=== PATIENT | male | born 1960 | race Caucasian/White ===

== ENCOUNTER 2021-10-07 05:29 | Inpatient (IN) | payer OTHER ==
[2021-10-06 14:42] LABS: COVID AG,FIA SOURCE NASAL SWAB
[~2021-10-07] VITALS: Ht 165.1 cm; Wt 93.2 kg
[~2021-10-07 05:29] MED LIST: AMLO-258 PO; ATOR10TA84 PO
[2021-10-07] MEDS ORDERED: RINGERS SOLUTION,LACTATED 1,000 ML IV ONE ×3 (05:30→08:09)
[2021-10-07] MEDS ORDERED: BUPIVACAINE LIPOSOME/PF 1.3%-13.3MG/ML SUSPENSION 20 ML VIAL INJ ONE (06:45)
[2021-10-07] MEDS ORDERED: TRANEXAMIC ACID 1,000 MG/10 ML VIAL ONE (06:46)
[2021-10-07] MEDS ORDERED: VANCOMYCIN HCL 1 GM/VIAL ONE (06:46)
[2021-10-07] MEDS ORDERED: BUPIVACAINE HCL/PF 0.5% 30 ML VIAL ONE (06:46)
[2021-10-07] MEDS ORDERED: SODIUM CL IRRIG SOLN BAG 6,000 ML IRRIG ONE (06:47)
[2021-10-07] MEDS ORDERED: SODIUM CHLORIDE 0.9% 20 ML ONE (06:51)
[2021-10-07] MEDS: OXYGEN THERAPY IH SCH (07:34)
[2021-10-07] MEDS ORDERED: HYDROmorphone 2 MG/ML VIAL IVP PRN ×2 (08:30)
[2021-10-07] MEDS ORDERED: FentaNYL CITRATE PF 100 MCG/2 ML VIAL IVP PRN (08:30)
[2021-10-07] MEDS ORDERED: SUGAMMADEX SODIUM 200 MG/2 ML VIAL IVP ONE (08:52)
[2021-10-07] MEDS ORDERED: MAG HYDROX/AL HYDROX/SIMETH 30 ML SUSP UDCUP PO PRN (09:30)
[2021-10-07] MEDS ORDERED: ONDANSETRON HCL 4 MG/2 ML VIAL IVP PRN (09:30)
[2021-10-07 10:25] VITALS: BP 123/66
[2021-10-07] MEDS: SODIUM CHLORIDE 0.9% 1,000 ML IV SCH ×2 (11:50→23:14)
[2021-10-07] MEDS: CYCLOBENZAPRINE HCL 10 MG TABLET PO SCH ×3 (11:50→23:18)
[2021-10-07] MEDS: CeFAZolin 2 GM/DEXTROSE 50 ML IV SCH ×2 (13:51→20:54)
[2021-10-07 15:37] VITALS: BP 122/73
[2021-10-07] MEDS: FAMOTIDINE 20 MG TABLET PO SCH (20:54)
[2021-10-07] MEDS: OxyCODONE HCL/ACETAMINOPHEN 5-325 MG TABLET PO PRN (20:55)
[2021-10-07] MEDS: DOCUSATE SODIUM 100 MG CAPSULE PO SCH (21:00)
[2021-10-07] MEDS: CELECOXIB 100 MG CAPSULE PO SCH (23:14)
[2021-10-08 04:38] VITALS: BP 113/72
[2021-10-08] MEDS: CeFAZolin 2 GM/DEXTROSE 50 ML IV SCH ×3 (05:17→22:16)
[2021-10-08] MEDS: CYCLOBENZAPRINE HCL 10 MG TABLET PO SCH ×4 (05:18→23:10)
[2021-10-08 06:22] LABS: ANION GAP 5 mmol/L (8-16); CALCIUM, TOTAL 7.9 mg/dL (8.8-10.5); CARBON DIOXIDE 28 mmol/L (22-29); CHLORIDE 104 mmol/L (98-107); CREATININE 1.02 mg/dL (0.60-1.30); GLOMERULAR FILTR. RATE CALC > 60 mL/min (>60); GLUCOSE,RANDOM 175 mg/dL (70-110); SODIUM SERUM 137 mmol/L (136-145); UREA NITROGEN, BLOOD 12 mg/dL (7-18)
[2021-10-08 06:25] LABS: BASOPHILS % (AUTO) 0.1 % (0.0-2.0); EOSINOPHILS % (AUTO) 0.1 % (1.0-6.0); HEMATOCRIT 33.4 % (41-53); HEMOGLOBIN 11.5 g/dL (13.5-17.5); LYMPHOCYTES # (AUTO) 1.6 K/uL (1.0-4.8); LYMPHOCYTES % (AUTO) 11.1 % (22.0-44.0); MEAN CORPUSCULAR HEMOGLOBIN 31.5 pg (26.0-34.0); MEAN CORPUSCULAR HGB CONC 34.4 G/dL (31.0-37.0); MEAN CORPUSCULAR VOLUME 91 fL (80-100); MONOCYTES # (AUTO) 1.3 K/uL (0.1-1.0); MONOCYTES % (AUTO) 8.9 % (2.0-9.0); NEUTROPHILS # (AUTO) 11.4 K/uL (1.8-7.7); NEUTROPHILS % (AUTO) 79.8 % (40.0-70.0); PLATELET COUNT (AUTO) 236 K/uL (150-450); RED BLOOD CELL COUNT(AUTO) 3.66 MIL/uL (4.50-5.90); RED CELL DISTRIBUTION WIDTH 13.6 % (11.5-14.5)
[2021-10-08] MEDS ORDERED: PROPOFOL 1% 20 ML VIAL IVP ONE (06:36)
[2021-10-08] MEDS ORDERED: DEXAMETHASONE SOD PHOS 4 MG/ML VIAL IVP ONE (06:36)
[2021-10-08] MEDS ORDERED: SUGAMMADEX SODIUM 200 MG/2 ML VIAL IVP ONE (06:36)
[2021-10-08] MEDS ORDERED: ACETAMINOPHEN/ISO-OSM 1000 MG/100 ML BOTTLE IV ONE (06:36)
[2021-10-08] MEDS ORDERED: LIDOCAINE/PF 2% 5 ML VIAL IM ONE (06:36)
[2021-10-08] MEDS ORDERED: KETOROLAC TROMETHAMINE 60 MG/2 ML VIAL IM ONE (06:36)
[2021-10-08] MEDS ORDERED: FentaNYL CITRATE PF 100 MCG/2 ML VIAL IVP ONE (06:36)
[2021-10-08] MEDS ORDERED: MIDAZOLAM HCL 2 MG/2 ML VIAL IVP ONE (06:36)
[2021-10-08] MEDS ORDERED: ROCURONIUM BROMIDE 10 MG/ML 5 ML VIAL IVP ONE (06:36)
[2021-10-08] MEDS ORDERED: ONDANSETRON HCL 4 MG/2 ML VIAL IVP ONE (06:36)
[2021-10-08] MEDS: OXYGEN THERAPY IH SCH ×2 (07:35→20:00)
[2021-10-08 08:20] VITALS: BP 101/68
[2021-10-08] MEDS: ASPIRIN 81 MG CHEWABLE TABLET PO SCH ×2 (08:27→20:38)
[2021-10-08] MEDS: FAMOTIDINE 20 MG TABLET PO SCH ×2 (08:27→20:38)
[2021-10-08] MEDS: ATORVASTATIN CALCIUM 10 MG TABLET PO SCH (08:27)
[2021-10-08] MEDS: DOCUSATE SODIUM 100 MG CAPSULE PO SCH ×2 (08:28→20:38)
[2021-10-08] MEDS: OxyCODONE HCL/ACETAMINOPHEN 5-325 MG TABLET PO PRN (08:46)
[2021-10-08] MEDS: AmLODIPine BESYLATE 10 MG TABLET PO SCH (09:00)
[2021-10-08] MEDS: CELECOXIB 100 MG CAPSULE PO SCH ×2 (09:55→20:38)
[2021-10-08] MEDS: SODIUM CHLORIDE 0.9% 1,000 ML IV SCH (12:07)
[2021-10-08 16:03] VITALS: BP 113/80
[2021-10-08 20:30] VITALS: BP 107/65
[2021-10-09] MEDS: SODIUM CHLORIDE 0.9% 1,000 ML IV SCH (01:14)
[2021-10-09] MEDS: CeFAZolin 2 GM/DEXTROSE 50 ML IV SCH ×2 (05:22→14:02)
[2021-10-09 05:33] VITALS: BP 127/87
[2021-10-09 06:23] LABS: BASOPHILS % (AUTO) 0.4 % (0.0-2.0); EOSINOPHILS % (AUTO) 2.3 % (1.0-6.0); HEMATOCRIT 31.5 % (41-53); HEMOGLOBIN 10.7 g/dL (13.5-17.5); MEAN CORPUSCULAR HEMOGLOBIN 30.9 pg (26.0-34.0); MEAN CORPUSCULAR HGB CONC 33.9 G/dL (31.0-37.0); MEAN CORPUSCULAR VOLUME 91 fL (80-100); MONOCYTES # (AUTO) 1.3 K/uL (0.1-1.0); MONOCYTES % (AUTO) 11.1 % (2.0-9.0); NEUTROPHILS # (AUTO) 6.9 K/uL (1.8-7.7); NEUTROPHILS % (AUTO) 60.2 % (40.0-70.0); PLATELET COUNT (AUTO) 207 K/uL (150-450); RED BLOOD CELL COUNT(AUTO) 3.45 MIL/uL (4.50-5.90); RED CELL DISTRIBUTION WIDTH 13.5 % (11.5-14.5)
[2021-10-09 07:23] VITALS: BP 124/84
[2021-10-09 07:25] VITALS: BP 122/82
[2021-10-09] MEDS: OXYGEN THERAPY IH SCH (08:00)
[2021-10-09] MEDS: CYCLOBENZAPRINE HCL 10 MG TABLET PO SCH ×2 (08:13→12:40)
[2021-10-09] MEDS: FAMOTIDINE 20 MG TABLET PO SCH (08:14)
[2021-10-09] MEDS: DOCUSATE SODIUM 100 MG CAPSULE PO SCH ×2 (08:14→09:00)
[2021-10-09] MEDS: ASPIRIN 81 MG CHEWABLE TABLET PO SCH (08:14)
[2021-10-09] MEDS: AmLODIPine BESYLATE 10 MG TABLET PO SCH (08:14)
[2021-10-09] MEDS: CELECOXIB 100 MG CAPSULE PO SCH (08:14)
[2021-10-09] MEDS: ATORVASTATIN CALCIUM 10 MG TABLET PO SCH (08:14)
[2021-10-09] MEDS: OxyCODONE HCL/ACETAMINOPHEN 5-325 MG TABLET PO PRN (14:02)
[2021-10-09 15:08] VITALS: BP 128/86
[2021-10-09] MEDS ORDERED: CYCL10TA16 PO (15:35)
[2021-10-09] MEDS ORDERED: CELE100 PO (15:35)
[2021-10-09] MEDS ORDERED: OXYC-38 PO (15:35)
[2021-10-09] MEDS ORDERED: ASPI81 PO (15:35)
== END 2021-10-09 16:05 | disposition home health service (06) | DRG 326 ==
LOC: 6N 05:29
PROVIDERS: ADMIT Orthopaedic Surgery; ATTEND Orthopaedic Surgery
PROC: 0SRC069 Replacement of Right Knee Joint with Oxidized Zirconium on Polyethylene Synthetic Substitute, Cemented, Open Approach (ICD-10-PCS; principal; 2021-10-07 07:30)
DX: M17.11 Unilateral primary osteoarthritis, right knee (principal); E78.5 Hyperlipidemia, unspecified; I10 Essential (primary) hypertension; Z20.822 Contact with and (suspected) exposure to COVID-19; Z79.899 Other long term (current) drug therapy
CPT/HCPCS: 80048; 85025; 87081; 88300; 93005; 97110; 97116; 97162; 97165; 97530; 97535; C9290; G0238; J0131; J0690; J1100; J1170; J1885; J2250; J2405; J2704; J3010; J3370; J3490; J7030; J7120; Q9967